=== PATIENT | female | born 1955 | race Caucasian/White ===

== ENCOUNTER 2017-08-09 15:08 | Emergency (ER) | payer OTHER ==
[2017-08-09] MEDS ORDERED: Ibuprofen 600 MG Tab PO ONE (15:45)
[2017-08-09] MEDS ORDERED: Acetaminophen/oxyCODONE 325-5 MG Tab PO STA (15:45)
--- NOTE | 2017-08-09 15:50 | EDM.PDOC ---
ED HPI GENERAL MEDICAL PROBLEM - General Chief Complaint: Head Injury Stated Complaint: HEAD BACK OF HEAD ON TRAILER Time Seen by Provider: 08/09/17 15:45 Source of Information: Reports: Patient History Limitations: Reports: No Limitations - History of Present Illness INITIAL COMMENTS - FREE TEXT/NARRATIVE: Cher is a 62-year-old female with a history of hypertension who presents to the emergency department today with her after falling and striking the back of her head on a trailer/hitch. Patient is not certain if she sustained loss of consciousness, she reports that for small time she felt like she was unable to answer questions. Patient also endorses midline left lateral neck pain. She denies any other injuries, she denies any nausea, she does complain of a fairly significant headache. 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 ED EXAM, HEAD INJURY - Physical Exam Exam: See Below Exam Limited By: No Limitations General Appearance: Alert, WD/WN, Anxious, Moderate Distress Head: Scalp Swelling, Scalp Tenderness, Other (significant midline occipital swelling, approximately the size of an orange posterior scalp, tender on palpation, no crepitus appreciated. No laceration or open wound noted) Nexus Criteria: Posterior, Midline Cervical Tenderness, Painful Distraction Injuries Eyes: Bilateral Eye: EOMI, Normal Inspection, PERRL Ears: Normal External Exam, Normal TMs Nose: Normal Inspection Throat/Mouth: Normal Inspection, Normal Oropharynx Neck: Paraspinous Muscle Tender, Spinous Processes Tender, Tender Midline Respiratory: No Respiratory Distress, Lungs Clear, Normal Breath Sounds Cardiovascular: No Murmur, Tachycardia GI/Abdominal Exam: Normal Bowel Sounds, Soft, Non-Tender Extremities: Normal Inspection Neurologic: Alert, Normal Mood/Affect, Oriented x 3 - [place] Coma Score Best Eye Response ([place]): (4) Open Spontaneously Best Verbal Response (Frida): (5) Oriented Best Motor Response (Frida): (6) Obeys Commands Course - Vital Signs Last Recorded V/S: Last Vital Signs Temp 37.0 C 08/09/17 15:18 Pulse 90 08/09/17 16:16 Resp 16 08/09/17 16:16 BP 141/86 H 08/09/17 16:23 Pulse Ox 98 08/09/17 16:16 Cher is a 62-year-old female with a history of hypertension who presents to the emergency department today with possible loss of consciousness after falling backward and striking her head on a trailer hitch. Please refer to history of present illness and focused exam. Patient on exam does not have any neural/ focal deficits. She is not on any blood thinners. CT scans were obtained of head and cervical spine which fortunately are negative for any acute findings from patient's injury today. I did discuss head injury precautions with patient and her in detail including concussive syndrome, I recommended scheduled ibuprofen, ice to back of head, and we'll send her home with Percocet for severe pain as needed. Narcotic safety was discussed as well as maximum Tylenol dosing in a 24-hour period. Reasons to return to the emergency department were discussed in detail. I did encourage plenty of rest the next couple of days, limited screen time, limited activity and follow-up with primary care in the next week. Patient and her are agreeable to plan of care and patient was discharged in stable condition. - Orders/Labs/Meds Orders: Active Orders 24 hr Category Date Time Status Cervical Spine wo Cont [CT] Stat Exams 08/09/17 15:46 Taken Head wo Cont [CT] Stat Exams 08/09/17 15:46 Taken Meds: Medications Discontinued Medications Generic Name Dose Route Start Last Admin Trade Name Freq PRN Reason Stop Dose Admin Ibuprofen 600 mg 08/09/17 15:45 08/09/17 15:53 Motrin PO 08/09/17 15:46 600 mg ONETIME ONE Administration Oxycodone/Acetaminophen 2 tab 08/09/17 15:45 08/09/17 15:53 Percocet 325-5 Mg PO 08/09/17 15:46 2 tab ONETIME STA Administration Departure - Departure Time of Disposition: 17:15 Disposition: Home, Self-Care 01 Condition: Good Clinical Impression: Head injury due to trauma Qualifiers: Encounter type: initial encounter Qualified Code(s): S09.90XA - Unspecified injury of head, initial encounter Scalp hematoma Qualifiers: Encounter type: initial encounter Qualified Code(s): S00.03XA - Contusion of scalp, initial encounter Cervical strain, acute Qualifiers: Encounter type: initial encounter Qualified Code(s): S16.1XXA - Strain of muscle, fascia and tendon at neck level, initial encounter - Discharge Information Instructions: Head Injury, Adult, [id number], Hematoma, [id number], Post- Concussion Syndrome, [id number] Referrals: PCP,None [Primary Care Provider] - Forms: ED Department Discharge Additional Instructions: Cher, please get plenty of rest the next 24-48 hours. Frequently apply ice to the swelling in the back of her head. You can take ibuprofen, 600 mg every 6 hours for the next 48 hours to help with any headache and scalp swelling as well as neck pain which may very well be worse when you wake up in the morning. I have given you Percocet for severe pain, this is a narcotic so please do not drive if you take it. If you experience any concerning symptoms please return to the emergency department. You can follow-up with her primary care provider later this week. - My Orders Last 24 Hours: My Active Orders 08/09/17 15:46 Cervical Spine wo Cont [CT] Stat Head wo Cont [CT] Stat - Assessment/Plan Last 24 Hours: My Active Orders 08/09/17 15:46 Cervical Spine wo Cont [CT] Stat Head wo Cont [CT] Stat
[2017-08-09 16:23] VITALS: BP 141/86
== END 2017-08-09 17:10 | disposition home or self-care (01) ==
LOC: JP.ED 15:08
DX: S09.90XA Unspecified injury of head, initial encounter (principal); S00.03XA Contusion of scalp, initial encounter; S16.1XXA Strain of muscle, fascia and tendon at neck level, initial encounter; I10 Essential (primary) hypertension; W01.198A Fall on same level from slipping, tripping and stumbling with subsequent striking against other object, initial encounter
CPT/HCPCS: 70450; 72125; 99284; A9270

== ENCOUNTER 2022-06-20 07:23 | Day surgery (SDC) | payer MEDICARE, OTHER ==
[~2022-06-20 07:23] MED LIST: Midazolam 1 MG/ML 2 ML SDV ONE; Propofol 200 MG/20 ML SDV ONE; fentaNYL 100 MCG/2 ML SDV ONE
[2022-06-20] MEDS ORDERED: Lactated Ringers 1,000 ML IV SCH (08:00)
[2022-06-20 10:33] VITALS: BP 133/74; PULSE 83
== END 2022-06-20 10:45 | disposition home or self-care (01) ==
LOC: JP.SDS 07:23
PROVIDERS: ATTEND Family Medicine
DX: Z12.11 Encounter for screening for malignant neoplasm of colon (principal); I10 Essential (primary) hypertension; J45.909 Unspecified asthma, uncomplicated; Z86.010 Personal history of colon polyps; Z79.83 Long term (current) use of bisphosphonates; Z86.73 Personal history of transient ischemic attack (TIA), and cerebral infarction without residual deficits
CPT/HCPCS: G0105; J2250; J2704; J3010; J7120